=== PATIENT | male | born 1955 | race Caucasian/White ===

== ENCOUNTER 2020-03-19 16:08 | Emergency (ER) | payer MEDICARE, OTHER ==
[~2020-03-19] VITALS: Ht 170.2 cm; Wt 93.9 kg
--- NOTE | 2020-03-19 16:10 | NUR ---
BIB [facility], LAYING ON A SIDEWALK,UNABLE TO WALK WITH STEADY GAIT,ETOH. PATIENT DISHEVELED, GEORGIAN SPEAKING. INCOHERENT. CHANGED INTO GOWN, NO DISTRESS NOTED. NEEDS ATTENDED. KEPT COMFORTABLE.
[2020-03-19] MEDS ORDERED: IV NS 0.9% 1,000 ML BAG IV ONE (16:30)
[2020-03-19 16:59] LABS: BASOPHILS % (AUTO) 0.5 % (0.0-2.0); EOSINOPHILS % (AUTO) 0.1 % (0.0-6.0); HEMATOCRIT 47 % (39-51); HEMOGLOBIN 16.2 g/dL (13.5-17.5); LYMPHOCYTES # (AUTO) 2.4 /CMM (0.8-4.8); LYMPHOCYTES % (AUTO) 26.3 % (20.0-44.0); MEAN CORPUSCULAR HGB CONC 34 g/dl (31.0-36.0); MEAN CORPUSCULAR VOLUME 98 fL (80-96); MONOCYTES # (AUTO) 0.9 /CMM (0.1-1.30); MONOCYTES % (AUTO) 9.9 % (2.0-12.0); NEUTROPHILS # (AUTO) 5.7 /CMM (1.8-8.9); NEUTROPHILS % (AUTO) 63.2 % (43.0-81.0); PLATELET COUNT (AUTO) 191 /CMM (150-450); RED BLOOD CELL COUNT(AUTO) 4.86 MIL/uL (4.5-6.0)
[2020-03-19 17:12] LABS: CALCIUM, SERUM 7.9 mg/dL (8.5-10.1); CREATININE 0.8 mg/dL (0.6-1.3)
[2020-03-19 17:18] LABS: ALBUMIN 4.2 g/dL (3.4-5.0); BILIRUBIN,DIRECT 0.3 mg/dL (0.0-0.2)
--- NOTE | 2020-03-19 19:23 | NUR ---
REPORT GIVEN TO VAN/LENARD BATRES.
--- NOTE | 2020-03-19 19:25 | NUR ---
RECEIVED REPORT FROM MEDARDO CASTILLO. PT APPEARS COMFORTABLE AT THIS TIME.
--- NOTE | 2020-03-19 19:41 | NUR ---
PT MOVED TO ER BED 15.
--- NOTE | 2020-03-20 01:53 | NUR ---
PT RESTING COMFORTABLY IN BED. VITAL SIGNS STABLE. RESPIRATIONS EVEN AND UNLABORED. NO ACUTE DISTRESS NOTED AT THIS TIME. PT STILL ON MONITOR, WILL CONTINUE TO MONITOR.
--- NOTE | 2020-03-20 04:58 | NUR ---
PT AWAKE, AAOX4. PER DR. SCHMIDT, PT MEDICALLY CLEARED FOR DISCHARGE. Patient discharged to home in stable condition. Written and verbal after care instructions given. Patient verbalizes understanding of instruction.IV removed. Catheter intact and site benign. Pressure and 4x4 applied to site. No bleeding noted. Pt ambulatory with a steady gait, walks with cane
[2020-03-20 05:00] VITALS: BP 135/81
== END 2020-03-20 05:01 | disposition home or self-care (01) ==
LOC: ER 16:10
DX: F10.129 Alcohol abuse with intoxication, unspecified (principal); I10 Essential (primary) hypertension; Y90.8 Blood alcohol level of 240 mg/100 ml or more; Z86.73 Personal history of transient ischemic attack (TIA), and cerebral infarction without residual deficits
CPT/HCPCS: 36415; 80048; 80076; 80307; 83690; 85025; 96360; 99285; J7030; G0480